=== PATIENT | female | born 1980 | race Caucasian/White ===

== ENCOUNTER → 2019-04-20 09:25 | Outpatient (CLI) | payer OTHER, SELFPAY ==
[2019-04-20 10:39] LABS: Vitamin D,25 Hydroxy 15.7 ng/mL (29.95-100.01)
[2019-04-20 10:44] LABS: Anion Gap 9 (5-15); BUN 9 mg/dL (7-18); Calcium,Total 8.8 mg/dL (8.5-10.1); Chloride 107 mmol/L (98-107); Cholesterol 264 mg/dL (200); Creatinine, Serum 0.82 mg/dL (0.55-1.02); EST Glomerular Filtration Rate 83 mL/min (>60); Est Glom Filt Rate - Afr Amer 100 mL/min (>60); Glucose 86 mg/dL (74-106); High Density Lipoprotein 60 mg/dL; Sodium Level 142 mmol/L (136-145); Thyroid Stim Hormone (TSH) 1.54 uIU/mL (0.358-3.74); Triglycerides 122 mg/dL; Very Low Density Lipoprotein 24 mg/dL (5-40)
== END ==
PROVIDERS: Family Provider Family Medicine; PCP Family Medicine; Referring Provider Family Medicine; Visit Provider Family Medicine
DX: Z00.00 Encounter for general adult medical examination without abnormal findings (principal)
CPT/HCPCS: 36415; 80048; 80061; 82306; 84443

== ENCOUNTER → 2019-04-25 12:11 | Outpatient (CLI) | payer OTHER, SELFPAY ==
--- NOTE | 2019-04-25 12:19 | US_ITS ---
STUDY: THYROID ULTRASOUND REASON FOR EXAM: Female, 38 years old. Nodule. TECHNIQUE: Ultrasound evaluation of the thyroid was performed with real-time and static odom-scale imaging. COMPARISON: CT of the soft tissues of the neck, September 01, 2016. FINDINGS: RIGHT LOBE: The right lobe of the thyroid gland measures 4.8 x 1.8 x 2.0 cm. There is a homogeneous echotexture. There are no demonstrated solid, cystic or complex lesions. Normal vascularity on Doppler imaging. LEFT LOBE: The left lobe of the thyroid gland measures 5.2 x 2.8 x 2.3 cm. There is a homogeneous echotexture. There is a 2.7 x 2.1 x 1.8 cm well defined hypoechoic nodule posterior aspect of the upper. There is peripheral and internal blood flow. ISTHMUS: The isthmus measures 0.5 cm. The regional lymph nodes are normal. US/Thyroid IMPRESSION: 1. Large hypoechoic nodule in the upper pole of the left thyroid. This correlates in position with a 1 x 1 x 1.3 cm enhancing nodule seen on the prior neck CT. This would be catheterized by the ACR TIRADS system as a TR 4 moderately suspicious lesion. Due to its size, FNA is recommended. Electronically Signed: Brent Meyer DO at 16:59 EDT Tel [phone], Service support ,
== END ==
PROVIDERS: Family Provider Family Medicine; PCP Family Medicine; Referring Provider Family Medicine; Visit Provider Family Medicine
DX: E04.1 Nontoxic single thyroid nodule (principal)
CPT/HCPCS: 76536

== ENCOUNTER 2019-06-19 05:31 | Day surgery (SDC) | payer OTHER, SELFPAY ==
[2019-05-04 08:12] VITALS: BMI 37.9
[2019-06-13 08:46] VITALS: BMI 37.9
[2019-06-13 17:26] LABS: Hematocrit 38.4 % (37-47); Hemoglobin 12.4 g/dL (12.0-15.0); Mean Corp Hgb Conc 32.3 g/dL (32-36); Mean Corpuscular Hgb 27.1 pg (27.0-32.0); Mean Corpuscular Volume 83.8 fL (81-99); Mean Platelet Vol. 9.4 fl (6.2-12.0); Platelet Count 344 K/mm3 (150-450); RBC Distribution Width CV 13.2 % (11.6-14.6); RBC Distribution Width SD 40.2 fl (35.1-43.9); Red Blood Count 4.58 M/mm3 (4.2-5.4); White Blood Count 10.2 K/mm3 (4.4-11.0)
[2019-06-13 18:05] LABS: Anion Gap 11 (5-15); BUN 13 mg/dL (7-18); BUN/Creat Ratio 13.5 RATIO (10-20); Calcium,Total 8.9 mg/dL (8.5-10.1); Chloride 105 mmol/L (98-107); Creatinine, Serum 0.96 mg/dL (0.55-1.02); EST Glomerular Filtration Rate 69 mL/min (>60); Est Glom Filt Rate - Afr Amer 83 mL/min (>60); Glucose 130 mg/dL (74-106); Potassium 3.7 mmol/L (3.5-5.1); Sodium Level 140 mmol/L (136-145); Thyroid Stim Hormone (TSH) 1.36 uIU/mL (0.358-3.74)
[2019-06-19] VITALS (8 sets, daily range): BP systolic 139–157; BP diastolic 75–97; PULSE 72–92; RESP 16–18; TEMP 36.1–36.6; O2SAT 96–100; BMI 38.5
--- NOTE | 2019-06-19 | THYROID_PTH ---
PATIENT: DASH MONTGOMERY [place] [facility] [place][id number] AGE/SX: 38/F ROOM: RE06/19/[address]: Dr. Jr Skinner MD : 1980 BED: DIS: 06/19/2019 SPEC #: [id number] RECD: 06/19/19 13:35 STATUS: KAREN OSVALDO #: [id number] ESTHER: 06/19/19 00:[address]: Jr Skinner DEPT: SURGICAL PATHOLOGY RECD BY: Michi De La Cruz ENTERED: 06/19/19 13:36 SP TYPE: THYROID OTHR DR: Dr. 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 See comment. SJ:rg 06/21/19 COMMENT Immunohistochemistry ([id number]) supports the above diagnosis. Case has been reviewed in consultation with Dr. Desir who concurs with the above diagnosis. IDC:AM MICROSCOPIC DESCRIPTION Slides are reviewed. GROSS DESCRIPTION Received in fixative is one container labeled with the patient's name and designated left thyroid lobectomy. The specimen consists of a thyroid lobectomy and isthmus. The specimen weighs 16.1 gm. The entire lobe measures 6 x 3 x 2.6 cm and the isthmus measures 1 x 1 x 0.5 cm. A suture is present identifying the anterior-superior portion of the thyroid wall. No external parathyroid tissue is identified. The specimen is inked as follows: posterior surface - black, anterior surface - blue, isthmus margin - yellow. Sections reveal a wood, ovoid solid nodule in the upper portion of the left lobe measuring 2.5 x 2 x 2 cm. No distinct capsule is noted on the nodule. The rest of the cut surface reveals pink-red solid cut surfaces. Sections reveal unremarkable cut surfaces. The entire specimen is submitted in 12 cassettes as follows: 1 - isthmus, 2 - containing most superior portion and 12 - containing most inferior portion of the lobe. / LILLI:alyse 06/20/19 TC:1 CPT: 22043
--- NOTE | 2019-06-19 | IMM_PTH ---
PATIENT: DASH MONTGOMERY LOC: [facility] – [place] U#:[id number] AGE/SX: 38/F ROOM: RE06/19/[address]: Dr. Jr Skinner MD : 1980 BED: DIS: 06/19/2019 SPEC #: [id number] RECD: 06/21/19 12:53 STATUS: KAREN REQ #: [id number] ESTHER: 06/19/19 00:[address]: Jr Skinner DEPT: IMMUNOHISTOCHEMISTRY RECD BY: Georgette Luis ENTERED: 06/21/19 12:54 SP TYPE: IMMUNO OTHR DR: Dr. Pipo Wong MD Tissues: Thyroid gland, NOS Procedures: HBME (initial) CD56 (add) CK19 (add) GAL-3 (add) PHYSICIAN & INSTITUTION [place] [id number] SPECIMEN INFORMATION: Tissue Source: Left thyroid lobectomy Clinical Info: Thyroid nodule Specimen Number: [id number] #3 CPT code: 55835, 13751 x3 METHODOLOGY: Deparaffinized sections of prefer/formalin-fixed tissue or PAP/DQ stained slides are incubated with monoclonal/polyclonal antibodies/oligonucleotide probes. Localization is made via biotin free immunoperoxidase method. Appropriate controls are performed and reacted as expected. Results on target cell population are indicated in the following table: RESULTS: ANTIBODY / CLONE RESULT HBME1 (HBME-1) negative CK19 (A53-B/A2.26) positive, focal GAL3 (9C4) negative CD56 (123C3.D5) positive These tests were developed and their performance characteristics determined by [facility]. They may not have been cleared or approved by the U.S. Food and Drug Administration. The FDA has determined that such clearance or approval is not necessary. The above immunohistochemical/dualISH markers are ordered and reviewed by the pathologist. INTERPRETATION: Left thyroid lobectomy: Consistent with follicular adenoma. LILLI:alyse 06/22/19 Case has been reviewed in consultation with Dr. Desir who concurs with the above diagnosis. IDC:ANNIE
[2019-06-19] MEDS: Lactated Ringers 1,000 ML 100 ML IV (06:20)
--- NOTE | 2019-06-19 06:33 | PCM.HP.BLA ---
Problem List (1) Thyroid nodule Status: Acute History and Physical Date of Admission: 06/19/19 Intake Visit Reasons: update h&p L thyroid lobectomy 06-19 Director Of Pharmacy Required: No Is patient in pain?: No Allergies latex Allergy (Unknown, Verified 06/13/19 08:46) Unknown Penicillins Allergy (Unknown, Verified 06/13/19 08:46) Unknown Sulfa (Sulfonamide Antibiotics) Allergy (Unknown, Verified 06/13/19 08:46) Unknown Medications fluoxetine 20 mg tablet 20 mg PO DAILY #90 tab 06/27/18 [Rx Confirmed 06/13/19] albuterol sulfate 90 mcg/actuation breath activated powder inhaler 1 inh INHALATION Q4H 05/04/19 [History Confirmed 06/13/19] cholecalciferol (vitamin D3) 5,000 unit capsule 5,000 unit PO DAILY 05/04/19 [History Confirmed 06/13/19] dicyclomine 10 mg capsule 10 mg PO TID PRN 05/04/19 [History Confirmed 06/13/19] lorazepam 0.5 mg tablet 0.5 mg PO QHS PRN 05/04/19 [History Confirmed 06/13/19] montelukast 10 mg tablet 10 mg PO QPM 05/04/19 [History Confirmed 06/13/19] sucralfate 1 gram tablet 1 g PO QACHS PRN 05/04/19 [History Confirmed 06/13/19] PFSH Medical History Globus sensation (Acute) Anemia (Acute) Asthma (Acute) Anxiety (Acute) Depression (Acute) Fatigue (Acute) Thyroid nodule (Acute) Difficulty swallowing (Acute) Surgical History History of biopsy (Acute) Hx of colonoscopy (Acute) History of esophagogastroduodenoscopy (EGD) (Acute) Hx of hysterectomy (Acute) Family History Mother Diabetes Heart disease Hypertension Thyroid disorder Father Asthma High cholesterol Thyroid disorder Brother Asthma Social History (Updated 06/13/19 @ 10:14 by Vaishnavi Smith PA-C) Smoking Status: Never smoker second hand exposure: No alcohol intake: never substance use type: does not use caffeine: Yes what type of physical activity do you participate in: none frequency: does not exercise HPI HPI HPI: DASH MONTGOMERY is a 38 F who presents to the office today for HPI HPI Surgical H&P: Yes HPI: DASH MONTGOMERY is a 38 F who presents to the office today for an update history and physical for her upcoming surgical procedure. Patient denies previous myocardial infarction, stroke or blood clots. Patient denies previous complications with anesthesia. She denies recent hospitalizations or illnesses. Patient's previous history per Dr. Skinner: DASH MONTGOMERY is a 38 F who presents to the office today for surgical consultation regarding globus sensation and known thyroid disease. The patient is referred by Dr. Pipo Wong a written compromise surgical consult and recommendations were returned to him. She is a very pleasant 38-year-old female. 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 For 3 years she has had problems with neck pressure globus sensation and occasional troubles with breathing and swallowing. She is been evaluated by endocrinology at the [facility] 2 years ago. It is of note that August 24, 2016 a ultrasound-guided fine-needle aspiration of the left thyroid was performed showing benign follicular cells and colloid. An ultrasound of September 30, 2017 suggests that an upper pole nodule on the left measured 1.8 x 1.4 x 1.7 cm and previously on August 07 it measured 1.4 x 1 x 1.2 cm. On August 27, 2016 a double and single contrast esophagram was normal. On October 06, 2017 a fine needle aspiration of the left thyroid demonstrated findings benign consistent with a colloid nodule. Her most recent testing performed at the [facility] April 25, 2019 thyroid ultrasound suggests that the right lobe measures 4.8 x 1.8 x 2 cm. No focal lesions. The left lobe measures 5.2 x 2.8 x 2.3 cm. There is now a 2.7 x 2.1 x 1.8 cm well-defined hypoechoic nodule posterior aspect of the upper lobe. Peripheral and internal blood flow identified. This is felt to be a ACR TIRADS for moderately suspicious secondary to size. Laboratory that was obtained on April 20, 2019 shows a BUN of 9 creatinine 0.82 cholesterol was 264 triglyceride 122. TSH was 1.54. Vitamin D 25 hydroxy was 15.7 with normal being 15.7 ROS General General: Yes fatigue; no weight change, appetite, colon cancer, breast cancer or weakness HEENT HEENT: Yes difficulty swallowing; no eye injury, eye surgery, swollen glands or hoarseness Endo Endocrine: No thyroid disease, diabetes mellitus, thyroid cancer, Hair loss, heat intolerance or cold intolerance Skin Skin: No rash or changing moles Musc Musculoskeletal: No back problems, arthritis, rheumatoid arthritis, gout or joint pain Cardio Cardiovascular: No murmur, pacemaker, heart disease, atrial fibrillation, high blood pressure, heart attack, heart stent, palpitations, shortness of breat with exertion or chest pain Psych Psychiatric: Yes depression and anxiety; no hearing voices Resp Respiratory: No shortness of breath, No sleep apnea, No cough, No COPD, Yes asthma, No emphysema, No wheezing Gastro Gastrointestinal: No abdominal pain, No nausea or vomiting, No diarrhea, No constipation, No blood in stool, No acid reflux, No hemorrhoids, No ulcers, No gallbladder problem, No black,tarry stools Fredrick Hematologic: No blood thinners, No blood disorders, No bleeding, Yes anemia, No blood clots Neuro Neurologic: No weakness Exam Const General: cooperative, healthy appearing, comfortable, no acute distress Nutritional Appearance: obese [facility] Head: normal to inspection Eyes General: appearance normal, both eyes and all related structures Neck Neck: normal visual inspection Neck mass: No Resp Effort & Inspection: normal respiratory effort Auscultation: clear to auscultation bilaterally Cardio Rate: regular rate Rhythm: regular rhythm Heart Sounds: no murmurs GI Inspection: normal to inspection Palpation: soft Auscultation: normal bowel sounds Skin General: no rashes or lesions noted Neuro General: no focal motor deficits, CN's II-XI intact bilaterally Extrem General: normal to inspection Psych Appearance: grossly normal Affect: normal affect Assessment & Plan Problems 1. Thyroid nodule E04.[address] Skinner will plan to perform a left thyroid lobectomy. Procedure details, risks and benefits have been reviewed with the patient. Patient has had the opportunity to ask and have questions answered. Patient verbally understands and agrees with the plan. Coding Level of Care Code No Charge Diagnoses Thyroid nodule E04.1 Comment Update H&P 06/13/19 1014 <Electronically signed by Vaishnavi Smith PA-C> Date Vaishnavi Luis Beltran Signature: Date (if applicable) CC: ~ I have re-examined the patient. There are no clinical changes since date of exam.
--- NOTE | 2019-06-19 07:07 | DCINST_ITS ---
Discharge Diet: Light diet - advance as tolerated - if you have questions about your diet instructions, please talk to you doctor. Discharge Activity: May Not Drive - for 3-5 days or while taking narcotic pain medicine. May shower in (days): 1 Lifting Restrictions: 10 pounds Call your doctor if your incision/area has: Continuous Slow Oozing, Sudden Increased Bleeding, Increased Pain/ Swelling, Increased Redness, Foul Smelling Discharge Call your doctor if you observe: Fever of 101 or Higher Suture Line Care: Avoid Pulling/Pushing, Avoid Pinching/Bending Additional Dressing/Incision Instructions:: You may remove the gauze dressing on Wednesday and you may shower over the surgical glue. You may reapply a dressing if needed to protect from clothing Allergies/Adverse Reactions: Allergies latex Allergy (Unknown, Verified 06/19/19 05:55) Unknown Penicillins Allergy (Unknown, Verified 06/19/19 05:55) Unknown Sulfa (Sulfonamide Antibiotics) Allergy (Unknown, Verified 06/19/19 05:55) Unknown Medications to take at Discharge fluoxetine 20 mg tablet 20 mg PO DAILY #90 tab 06/27/18 albuterol sulfate 90 mcg/actuation breath activated powder inhaler 1 inh INHALATION Q4H PRN 05/04/19 cholecalciferol (vitamin D3) 5,000 unit capsule 5,000 unit PO DAILY 05/04/19 dicyclomine 10 mg capsule 10 mg PO BID 05/04/19 lorazepam 0.5 mg tablet 0.5 mg PO QHS PRN 05/04/19 montelukast 10 mg tablet 10 mg PO QPM 05/04/19 sucralfate 1 gram tablet 1 g PO BID 05/04/19 Primary Care Physician: Pipo Wong MD [Primary Care Provider] - Test Results: Test results from this visit will be discussed in further detail at your follow- up appointment, if applicable. Please Follow Up With: Jr Skinner MD - [phone] When: Call to make an appointment to be seen in about 10 days.
[2019-06-19] MEDS: Bupivacaine Mpf 0.5% 30 ML VIAL (08:33)
--- NOTE | 2019-06-19 08:36 | PCM.OPRPT ---
Problem List (1) Thyroid nodule Status: Acute Report of Operation Date of Procedure: 06/19/19 Pre-Operative Diagnosis: Enlarging left thyroid nodule Post-Operative Diagnosis: Same Surgery/Procedure Performed:: Left thyroid lobectomy with isthmusectomy Description of Surgical Findings:: Timeout informed consent was obtained. 38-year-old female was taken out from placement table underwent general anesthesia. Neck was gently extended. A suprasternal transverse incision was created. Electrocautery was used to dissect down through the substance tissue. Platysmal flaps were raised. Strap muscles were incised vertically. Left thyroid lobe was then carefully teased free the middle thyroidal vein was secured to Monnig scalpel the inferior pole was identified the inferior parathyroid identified protected Harmonic Scalpel dissection blunt dissection was utilized aggressively. Having proceeded reasonable distance at that location I then tona my attention to the superior pole. This was somewhat more adherent. The superior pole vessels were dissected free and then secured with harmonic scalpel. This allowed then for anterior rotation. Dissection performed directly upon the posterior surface of the left lobe of thyroid there was a soft bulbous area in the inferior portion of this was elevated the course of the recurrent nerve identified and preserved the dissection continued and the gland was dissected off the anterior surface of the trachea. The ligament of Frias was carefully transected as well with harmonic scalpel. Then I dissected past the midline to the medial portion of the right lobe and used a harmonic transected that location. The suture was placed in the anterior superior aspect of the left lobe. Hemostasis was nicely intact and hemostasis been obtained throughout. Several hemoclips were utilized throughout the procedure. The left neck site was inspected it was hemostatic there is no visibly residual tissue there is no palpable adenopathy Piece of snow was placed on the left neck. The strap muscles were approximated midline with interrupted 3-0 Vicryl. The platysma with the same. Skin edges approximated with surgical glue. Telfa and tape dressings applied. Sponge and instrument and needle counts were reported the surgeon for correct. Specimens left lobe of the thyroid plus isthmus. Drains none. Blood loss minimal. Jr Skinner M.D., F.A.C.S. Type of Anesthesia:: General Anesthesiologist: Craig Page
== END 2019-06-19 12:06 | disposition home or self-care (01) ==
LOC: SDC 05:32 → AC 05:32
PROVIDERS: Family Provider Family Medicine; PCP Family Medicine; Referring Provider Surgery; Visit Provider Surgery
PROC: (CPT 60220; principal; 2019-06-19 07:00)
DX: D34 Benign neoplasm of thyroid gland (principal); J45.909 Unspecified asthma, uncomplicated; F41.9 Anxiety disorder, unspecified; F32.9 Major depressive disorder, single episode, unspecified; E66.9 Obesity, unspecified; Z68.38 Body mass index [BMI] 38.0-38.9, adult; Z79.51 Long term (current) use of inhaled steroids; Z79.899 Other long term (current) drug therapy
CPT/HCPCS: 60220; 36415; 80048; 84443; 85027; 88307; 88341; 88342; J7120; J2405

== ENCOUNTER → 2019-10-05 14:23 | Outpatient (CLI) | payer OTHER, SELFPAY ==
[2019-06-26 14:30] VITALS: BMI 38.5
--- NOTE | 2019-10-05 14:29 | US_ITS ---
STUDY: ULTRASOUND BREAST - RIGHT REASON FOR EXAM: Female, 38 years old. Right breast fullness. TECHNIQUE: Axial and longitudinal images of the RIGHT breast were performed with a high resolution ultrasound transducer. # OF IMAGES: 43 COMPARISON: Comparison is made with prior mammogram done earlier in the day. FINDINGS: RIGHT Breast: The lateral half of the breast was examined by ultrasound. No sonographic abnormality is seen. US/Breast Limited Unilateral IMPRESSION: No sonographic abnormality is seen. ASSESSMENT CATEGORY: BIRADS Category 1: Negative. A letter regarding these results will be sent to the patient by the facility within 30 days. Electronically Signed: Satinder Shirley, at 14:41 EST , Service support ,
--- NOTE | 2019-10-05 14:29 | BI_ITS ---
MAMMOGRAPHY - BILATERAL DIAGNOSTIC REASON FOR EXAM: Female, 38 years old. Right breast fullness. PERTINENT HISTORY: Grandmother with breast cancer. Aunt with breast cancer. TECHNIQUE: Digital bilateral breast dasha (3D mammographic acquisition) in the CC and MLO projections. 2-D mediolateral oblique (MLO) and craniocaudad (CC) views of both breasts were obtained. CAD: Full Field Digital Mammography with Computer Added Detection was performed. COMPARISON: None. Baseline examination. FINDINGS: Breast Composition: The breasts are heterogeneously dense, which may obscure small masses. There are no dominant masses or suspicious calcifications. No other significant abnormalities are identified. BI/DIAG MAMM W/CAD, BILAT IMPRESSION: Negative diagnostic mammogram. The patient''s history of fullness of the right breast, correlation with ultrasound is recommended. ASSESSMENT CATEGORY: BIRADS Category 0: Incomplete. Need additional imaging evaluation. A letter regarding these results will be sent to the patient by the facility within 30 days. Approximately 10% of breast cancers are not detected by mammography. A normal mammogram should not delay biopsy of a clinically suspicious abnormality. Electronically Signed: Satinder Shirley, at 8:32 EST , Service support ,
== END ==
PROVIDERS: PCP Family Medicine; Referring Provider Family Medicine; Visit Provider Family Medicine
DX: N64.4 Mastodynia (principal)
CPT/HCPCS: 76642; 77062; 77066; G0279

== ENCOUNTER → 2021-01-27 | Outpatient (CLI) | payer OTHER, SELFPAY ==
[2019-06-26 14:30] VITALS: BMI 38.5
== END | disposition home or self-care (01) ==
LOC: LABSPEC 10:02
PROVIDERS: PCP Family Medicine; Visit Provider Family Medicine
DX: R35.0 Frequency of micturition (principal)
CPT/HCPCS: 87086; 87088

== ENCOUNTER → 2021-04-17 10:42 | Outpatient (CLI) | payer OTHER, SELFPAY ==
[2019-06-26 14:30] VITALS: BMI 38.5
--- NOTE | 2021-04-17 10:46 | BI_ITS ---
MAMMOGRAPHY - BILATERAL SCREENING REASON FOR EXAM: Female, 40 years old. Routine annual screening examination. PERTINENT HISTORY: Grandmother with breast cancer. Aunts with breast cancer. TECHNIQUE: Digital bilateral breast rosalina (3D mammographic acquisition) in the CC and MLO projections. 2-D mediolateral oblique (MLO) and craniocaudad (CC) views of both breasts were obtained. CAD: Full Field Digital Mammography with Computer Added Detection was performed. COMPARISON: Comparison is made with prior study dated 04/04/2020. FINDINGS: Breast Composition: The breasts are heterogeneously dense, which may obscure small masses. There are no dominant masses or suspicious calcifications. No other significant abnormalities are identified. There has been no significant change since the prior study. BI/SCRN MAMM (CAD)W/ROSALINA BILAT IMPRESSION: Stable bilateral screening mammogram. Yearly follow-up mammogram recommended. (A) ASSESSMENT CATEGORY: BIRADS Category 1: Negative. A letter regarding these results will be sent to the patient by the facility within 30 days. Approximately 10% of breast cancers are not detected by mammography. A normal mammogram should not delay biopsy of a clinically suspicious abnormality. [id number] Electronically Signed: Satinder Shirley MD at 12:27 EDT , Service support ,
== END ==
PROVIDERS: PCP Family Medicine; Referring Provider Family Medicine; Visit Provider Family Medicine
DX: Z12.31 Encounter for screening mammogram for malignant neoplasm of breast (principal)
CPT/HCPCS: 77063; 77067

== ENCOUNTER → 2021-06-09 08:19 | Outpatient (CLI) | payer OTHER, SELFPAY ==
[2019-06-26 14:30] VITALS: BMI 38.5
--- NOTE | 2021-06-09 09:59 | NEURO_ITS ---
NCS and/or EMG Patient Report Ordering Doctor: Amy Alonso DATE OF SERVICE: 06/09/21 Indication: Bilateral upper extremity numbness extending from from the hands up to the elbows over the last 6 months. Worsening dexterity and lead mason tender strength. Evaluate for peripheral nerve injury. Findings: Nerve conduction studies were performed in the right and left upper extremity. The right median motor study recording the abductor pollicis brevis showed a normal amplitude, normal distal latency and normal conduction velocity. The right ulnar motor study recording the abductor digiti minimi showed a normal amplitude, normal distal latency and normal conduction velocity. No conduction block or focal slowing was present across the elbow. The right median sensory response recording digit two showed a normal amplitude, normal latency and borderline conduction velocity. The right ulnar sensory response recording digit five showed a normal amplitude, latency and conduction velocity. The right radial sensory response recording over the extensor snuff box showed a normal amplitude, latency and conduction velocity. Right median- ulnar lumbrical / interosseous motor latencies showed no significant difference. The left median motor study recording the abductor pollicis brevis showed a normal amplitude, normal distal latency and normal conduction velocity. The left ulnar motor study recording the abductor digiti minimi showed a normal amplitude, normal distal latency and normal conduction velocity. No conduction block or focal slowing was present across the elbow. The left median sensory response recording digit two showed a normal amplitude, latency and conduction velocity. The left ulnar sensory response recording digit five showed a normal amplitude, latency and conduction velocity. The left radial sensory response recording over the extensor snuff box showed a normal amplitude, latency and conduction velocity. Left median ulnar lumbrical / interosseous motor latencies showed no significant difference. Needle EMG of the right upper extremity and cervical paraspinal muscles was performed. No denervation was seen in any muscle. All motor unit morphology, activation and recruitment patterns were normal. Needle EMG of the left upper extremity muscles was omitted due to a paucity of findings in the more symptomatic limb. Impression: This is a normal study. There was no electrophysiologic evidence of median or ulnar entrapment neuropathy in either upper extremity. In addition, there was no electrophysiologic evidence of cervical radiculopathy in the right upper extremity. Please note: the electrodiagnosis of radiculopathy is made on the basis of excluding peripheral nerve lesions on nerve conduction studies and the needle EMG demonstrating denervation and/or reinnervation in the distribution of one or more nerve roots (i.e., acute and/or chronic axonal loss). Thus, electrodiag nostic studies are insensitive in detecting radiculopathy in the absence of axonal loss (e.g., in the setting of compression resulting in intermittent ischemia or mechanical deformation; or demyelination without axonal loss). Thus, clinical correlation is required in the interpretation of this negative electrodiagnostic study for radiculopathy. Jose García D.O. Multi Select Codes Neurology Neurology Interp Codes: 48285-83 Musc test done w/n test comp (interp) and 61272-26 [facility] cnd test 13/> studies (interp)
== END ==
LOC: PSN 08:20
PROVIDERS: PCP Family Medicine; Referring Provider Nurse Practitioner Family; Visit Provider Nurse Practitioner Family
DX: G56.00 Carpal tunnel syndrome, unspecified upper limb (principal); R20.0 Anesthesia of skin
CPT/HCPCS: 95886; 95913

== ENCOUNTER → 2022-04-27 | Outpatient (CLI) | payer OTHER, SELFPAY ==
--- NOTE | 2022-04-27 07:11 | BI_ITS ---
MAMMOGRAPHY - BILATERAL SCREENING REASON FOR EXAM: Female, 41 years old. Routine annual screening examination. PERTINENT HISTORY: Grandmother with breast cancer. Aunts with breast cancer. TECHNIQUE: Digital bilateral breast rosalina (3D mammographic acquisition) in the CC and MLO projections. 2-D mediolateral oblique (MLO) and craniocaudad (CC) views of both breasts were obtained. CAD: Full Field Digital Mammography with Computer Added Detection was performed. COMPARISON: Comparison is made with prior study dated 04/17/2021 and 10/05/2019. FINDINGS: Breast Composition: The breasts are heterogeneously dense, which may obscure small masses. There are no dominant masses or suspicious calcifications. No other significant abnormalities are identified. There has been no significant change since the prior study. BI/SCRN MAMM (CAD)W/ROSALINA BILAT IMPRESSION: Stable bilateral screening mammogram. Yearly follow-up mammogram recommended. (A) ASSESSMENT CATEGORY: BIRADS Category 1: Negative. A letter regarding these results will be sent to the patient by the facility within 30 days. Approximately 10% of breast cancers are not detected by mammography. A normal mammogram should not delay biopsy of a clinically suspicious abnormality. [id number] Electronically Signed: Satinder Shirley MD at 10:47 EDT ,
== END | disposition home or self-care (01) ==
PROVIDERS: PCP Family Medicine; Visit Provider Nurse Practitioner Family
DX: Z12.31 Encounter for screening mammogram for malignant neoplasm of breast (principal); Z80.3 Family history of malignant neoplasm of breast
CPT/HCPCS: 77063; 77067

== ENCOUNTER → 2022-08-31 | Outpatient (CLI) | payer OTHER, SELFPAY ==
[2022-08-31 17:56] LABS: Hematocrit 38.5 % (37-47); Hemoglobin 12.2 g/dL (12.0-15.0); Mean Corp Hgb Conc 31.7 g/dL (32-36); Mean Corpuscular Hgb 27.3 pg (27.0-32.0); Mean Corpuscular Volume 86.1 fL (81-99); Mean Platelet Vol. 9.8 fl (6.2-12.0); Platelet Count 403 K/mm3 (150-450); RBC Distribution Width CV 13.2 % (11.6-14.6); RBC Distribution Width SD 41.8 fl (35.1-43.9); Red Blood Count 4.47 M/mm3 (4.2-5.4)
[2022-08-31 18:46] LABS: Vitamin B12 423 pg/mL (211-911); Vitamin D,25 Hydroxy 21.2 ng/mL
[2022-08-31 18:55] LABS: ALB/GLOB Ratio 1.3 RATIO (0.9-2.4); AST(SGOT) 17 U/L (15-37); Alanine Aminotransfer ALT/SGPT 28 U/L (13-56); Albumin, Serum 4.2 g/dL (3.2-5.0); Alkaline Phosphatase 76 U/L (45-117); Anion Gap 8 (5-15); BUN 9 mg/dL (7-18); BUN/Creat Ratio 11.9 RATIO (10-20); Calcium,Total 9.3 mg/dL (8.5-10.1); Chloride 107 mmol/L (98-107); Creatinine, Serum 0.76 mg/dL (0.55-1.02); EST Glomerular Filtration Rate 89 mL/min (>60); Est Glom Filt Rate - Afr Amer 108 mL/min (>60); Globulin 3.2 g/dL (2.2-4.2); Glucose 85 mg/dL (74-106); Potassium 4.5 mmol/L (3.5-5.1); Protein, Total 7.4 g/dL (6.4-8.2); Sodium Level 139 mmol/L (136-145); Thyroid Stim Hormone (TSH) 1.94 uIU/mL (0.358-3.74)
== END | disposition home or self-care (01) ==
LOC: MFPLAB 15:34
PROVIDERS: PCP Family Medicine; Visit Provider Nurse Practitioner Family
DX: R53.83 Other fatigue (principal)
CPT/HCPCS: 36415; 80053; 82306; 82607; 84443; 85027

== ENCOUNTER → 2023-01-11 | Outpatient (CLI) | payer OTHER, SELFPAY ==
--- NOTE | 2023-01-11 09:27 | US_ITS ---
STUDY: ULTRASOUND BREAST - RIGHT REASON FOR EXAM: Female, 42 years old. Palpable lump in the right breast. TECHNIQUE: Axial and longitudinal images of the RIGHT breast were performed with a high resolution ultrasound transducer. # OF IMAGES: 26 COMPARISON: Comparison is made with prior mammogram done earlier in the day as well as prior sonogram of the right breast dated October 05, 2019. FINDINGS: RIGHT Breast: The upper-outer quadrant of the right breast was examined with ultrasound. No sonographic abnormality is seen. US/Breast Limited Unilateral IMPRESSION: No sonographic abnormality is seen. ASSESSMENT CATEGORY: BIRADS Category 1: Negative. A letter regarding these results will be sent to the patient by the facility within 30 days. Electronically Signed: Satinder Shirley MD at 11:01 EDT ,
--- NOTE | 2023-01-11 09:27 | BI_ITS ---
MAMMOGRAPHY - BILATERAL DIAGNOSTIC REASON FOR EXAM: Female, 42 years old. Palpable lump in the upper outer quadrant of the right breast. PERTINENT HISTORY: Grandmother with breast cancer. Aunts with breast cancer. TECHNIQUE: Digital bilateral breast dasha (3D mammographic acquisition) in the CC and MLO projections. 2-D mediolateral oblique (MLO) and craniocaudad (CC) views of both breasts were obtained. CAD: Full Field Digital Mammography with Computer Added Detection was performed. COMPARISON: Comparison is made with prior examination April 27, 2022 and April 17, 2021. FINDINGS: Breast Composition: The breasts are heterogeneously dense, which may obscure small masses. There are no dominant masses or suspicious calcifications. No other significant abnormalities are identified. There has been no significant change since the prior study. BI/DIAG MAMM W/CAD, BILAT IMPRESSION: Stable bilateral diagnostic mammogram. With the patient''s history of a palpable lump in the upper-outer quadrant of the right breast, targeted correlation with ultrasound is recommended. ASSESSMENT CATEGORY: BIRADS Category 0: Incomplete. Need additional imaging evaluation. A letter regarding these results will be sent to the patient by the facility within 30 days. Approximately 10% of breast cancers are not detected by mammography. A normal mammogram should not delay biopsy of a clinically suspicious abnormality. Electronically Signed: Satinder Shirley MD at 10:47 EDT ,
== END | disposition home or self-care (01) ==
LOC: OPBI 09:24
PROVIDERS: PCP Family Medicine; Referring Provider Advanced Practice Midwife; Visit Provider Advanced Practice Midwife
DX: N63.10 Unspecified lump in the right breast, unspecified quadrant (principal)
CPT/HCPCS: 76642; 77062; 77066; G0279

== ENCOUNTER → 2024-08-25 | Outpatient (CLI) | payer OTHER, SELFPAY ==
--- NOTE | 2024-08-25 12:36 | BI_ITS ---
MAMMOGRAPHY - BILATERAL SCREENING REASON FOR EXAM: Female, 43 years old. Routine annual screening examination. PERTINENT HISTORY: Grandmother with breast cancer. Aunts with breast cancer. TECHNIQUE: Digital bilateral breast rosalina (3D mammographic acquisition) in the CC and MLO projections. 2-D mediolateral oblique (MLO) and craniocaudad (CC) views of both breasts were obtained. CAD: Full Field Digital Mammography with Computer Added Detection was performed. COMPARISON: Comparison is made with prior study dated January 11, 2023 and April 27, 2022. FINDINGS: Breast Composition: The breasts are heterogeneously dense, which may obscure small masses. Focal area of architectural distortion seen on the mediolateral oblique view in the region of the right axilla. The patient will be recalled for additional views including 90 degree lateral and compression spot views. No other significant abnormalities are identified. BI/SCRN MAMM (CAD)W/ROSALINA BILAT IMPRESSION: Focal area of architectural distortion is seen in the axillary region of the right breast on the mediolateral oblique view. The patient will be recalled for additional views including 90 degree lateral and compression spot Recall Side: Right Breast ASSESSMENT CATEGORY: BIRADS Category 0: Incomplete. Need additional imaging evaluation. A letter regarding these results will be sent to the patient by the facility within 30 days. Approximately 10% of breast cancers are not detected by mammography. A normal mammogram should not delay biopsy of a clinically suspicious abnormality. [id number] Electronically Signed: Satinder Shirley MD at 13:39 EST ,
== END | disposition home or self-care (01) ==
PROVIDERS: PCP Family Medicine; Referring Provider Family Medicine; Visit Provider Family Medicine
DX: Z12.31 Encounter for screening mammogram for malignant neoplasm of breast (principal)
CPT/HCPCS: 77063; 77067

== ENCOUNTER → 2024-09-12 | Outpatient (CLI) | payer OTHER, SELFPAY ==
--- NOTE | 2024-09-12 13:11 | BI_ITS ---
MAMMOGRAPHY - UNILATERAL DIAGNOSTIC: RIGHT BREAST REASON FOR EXAM: Female, 43 years old. ABN MAMM PERTINENT HISTORY: Non-contributory. TECHNIQUE: Digital examination. Mediolateral oblique (MLO) and craniocaudad (CC) views of the breast were obtained. CAD: CAD was not performed on this study. COMPARISON: 08/25/2024 FINDINGS: Breast Composition: There are scattered areas of fibroglandular density. Focal compression views do not confirm a mass in the outer right breast most consistent with normal breast parenchyma appear No other significant abnormalities are identified. BI/DIAG MAMM W/CAD, UNILAT IMPRESSION: Stable unilateral diagnostic mammogram. ASSESSMENT CATEGORY: BIRADS Category 1: Negative. A letter regarding these results will be sent to the patient by the facility within 30 days. FOLLOW-UP RECOMMENDATION: Yearly follow-up mammogram recommended. (A) Approximately 10% of breast cancers are not detected by mammography. A normal mammogram should not delay biopsy of a clinically suspicious abnormality. Electronically Signed: Al Sapp MD at 13:41 EST ,
== END | disposition home or self-care (01) ==
LOC: OPBI 13:08
PROVIDERS: PCP Family Medicine; Referring Provider Family Medicine; Visit Provider Family Medicine
DX: R92.8 Other abnormal and inconclusive findings on diagnostic imaging of breast (principal)
CPT/HCPCS: 77065